=== PATIENT | female | born 1945 | race Caucasian/White ===

== ENCOUNTER → 2016-08-03 | Outpatient (CLI) | payer MEDICARE, BC ==
[~2016-08-03] MED LIST: ACTOPLUS MET 11 EACH PO; ALLEGRA180 MG PO; ATENOLOL PO; B COMPLEX1 CA1 PO; BACTROBAN22 GM TP; BENICAR PO; CALCIUM + D 6001 TA1 PO; CYMBALTA PO; DOXYCYCLINE PO; FLAX SEED OIL1 EACH PO; FLEXERIL10 M1 PO; LIPITOR20 MG PO; LORTAB 101 TAB 10/5 PO; MOBIC15 MG PO; MOVE FREE; PROTONIX PO; STOOL SOFTENER1 EAC1 PO; TRAMADOL HCL50 M2 PO; TYLOX 5-500 CA1 EACH PO; TYLOX1 CAP 5/50 PO
--- NOTE | ~2016-08-03 | MR32 ---
[facility] A Service of [facility] & [facility] RADIOLOGY TEXT RESULTS PATIENT: SINDI RICHARDS LOCATION: [facility] : 49 UNIT #: [id number] AGE: [address]: Mendez Cm MD SEX: F ORDER DR: [id number] [address] [address] [id number] O MR#: [id number] Acc #: [id number] NAME: SINDI RICHARDS : 1945 SEX: F STUDY DATE/TIME: 08/03/2016 9:32 UNIT: [facility] ROOM: STUDY DESCRIPTION: MR Cervical Wo Contrast Attending Physician: Mendez Cm M.D. Referring Physician: Mendez Cm M.D. Ordering Physician: Mendez Cm M.D. Primary Care Physician: Mendez Cm M.D. MRI CENTER REPORT This report is preliminary unless electronic signature is present. EXAM MRI of the cervical spine without contrast dated 08/03/2016. COMPARISON None HISTORY Chronic neck pain for 15 years, favors the right side. FINDINGS Multisequence, multiplanar imaging of the cervical spine was obtained without contrast. Disc-osteophyte complex are at multiple levels with endplate osteophytes. Cord demonstrates expected caliber and signal. It is slightly displaced posteriorly. Imaged posterior fossa and craniovertebral junction are unremarkable. There is mild left mastoid tip mucosal thickening. Pre- and paravertebral soft tissues do not demonstrate any significant abnormality. C2-3: Mild disc bulge with severe left facet hypertrophic change. Mild left neural foraminal encroachment is noted. C3-4: Disc-osteophyte complex with severe left and moderate to severe right facet hypertrophic change. Severe bilateral neural foraminal narrowing is seen with borderline size canal. C4-5: Concentric disc bulge with moderate left facet hypertrophic change. Borderline size canal is noted without any significant neural foraminal narrowing. C5-6: Concentric disc bulge with borderline size to mild canal stenosis. Moderate bilateral facet hypertrophic changes are noted with central protrusion and mild right neural foraminal encroachment. [facility] A Service of [facility] & [facility] RADIOLOGY TEXT RESULTS PATIENT: SINDI RICHARDS LOCATION: [facility] : 49 UNIT #: [id number] AGE: [address]: Mendez Cm MD SEX: F ORDER DR: C6-7: Disc-osteophyte complex with mild bilateral facet changes. Moderate to severe canal stenosis is seen with mild bilateral neural foraminal narrowing. C7-T1: Disc-osteophyte complex with mild to moderate bilateral facet changes. No canal stenosis or significant neural foraminal narrowing. IMPRESSION Degenerative changes are at multiple levels, worst at C6-7 with moderate to severe canal stenosis and mild bilateral neural foraminal narrowing. Cord has normal caliber and signal. Dictated by... Rasta Chaney M.D. THIS IS AN ELECTRONICALLY VERIFIED REPORT Rasta Chaney M.D. at 08/05/2016 12:38 PM CPR/psc TD: 08/03/2016 20:38 JOB #: [id number] MRI CENTER REPORT Page 1 of 1
--- NOTE | ~2016-08-03 | MR113 ---
[facility] A Service of [facility] & [facility] RADIOLOGY TEXT RESULTS PATIENT: SINDI RICHARDS LOCATION: [facility] : 49 UNIT #: [id number] AGE: [address]: Mendez Cm MD SEX: F ORDER DR: [id number] [address] [address] [id number] O MR#: [id number] Acc #: [id number] NAME: SINDI RICHARDS : 1945 SEX: F STUDY DATE/TIME: 08/03/2016 10:05 UNIT: [facility] ROOM: STUDY DESCRIPTION: MR Lumbar Wo Contrast Attending Physician: Mendez Cm M.D. Referring Physician: Mendez Cm M.D. Ordering Physician: Mendez Cm M.D. Primary Care Physician: Mendez Cm M.D. MRI CENTER REPORT This report is preliminary unless electronic signature is present. EXAM MRI of the lumbar spine without contrast, 08/03/[address] abdomen and pelvis with contrast dated 06/12/2012. HISTORY Low back pain for 15 years with bilateral lower extremity weakness. FINDINGS Multisequence multiplanar imaging of the lumbar spine was obtained without contrast. Vertebral body heights and alignment are preserved. Degenerative disc disease is at multiple levels. Fatty endplate changes are noted from L2 to L4. Conus terminates at T12-L1. Signal of conus and cauda equina are within normal limits. T12-L1: Disc osteophyte complex with likely superimposed small central protrusion, mild canal stenosis. No neural foraminal narrowing. Mild right facet hypertrophic change. L1-2: Mild disc bulge, mild bilateral facet changes. Borderline size to mild canal stenosis is seen without significant neural foraminal narrowing. L2-3: Disc osteophyte complex with superimposed gqnulho-di-mnptf subarticular protrusion. Severe bilateral facet hypertrophic changes are noted with ligamentum flavum thickening, severe canal stenosis. Mild right lateral recess stenosis are seen with mild to moderate bilateral neural foraminal narrowing. L3-4: Disc osteophyte complex with Central prominence is seen. There are mild left and moderate right facet hypertrophic changes. Bilateral Ligamentum flavum thickening are noted with severe canal stenosis. Mild left lateral recess stenosis and hehc-ws-rbazqfmj bilateral neural STS. [facility] A Service of [facility] & [facility] RADIOLOGY TEXT RESULTS PATIENT: SINDI RICHARDS LOCATION: [facility] : 49 UNIT #: [id number] AGE: [address]: Mendez Cm MD SEX: F ORDER DR: foraminal narrowing are present. L4-5: Disc osteophyte complex with entc-vz-fxhzwfom bilateral facet hypertrophic changes and jgxw-hm-cbskezbe bilateral neural foraminal narrowing. There is prominence of soft tissue in the anteromedial aspect of the left facet joint which could be related to mild ligamentum flavum thickening or spur. It causes mild to moderate left lateral recess stenosis. Mild transverse canal stenosis is also suspected. L5-S1: There appears to be asymmetrically smaller and tender left lamina, likely congenital. It does not appear to be surgical. Confirm clinically. Severe bilateral facet hypertrophic changes are noted, worse on the right. Disc bulge is noted with mild to moderate left neural foraminal narrowing. No canal stenosis. IMPRESSION Multilevel degenerative changes are noted as described above, worst at L2-3 and L3-4 with canal stenosis and bilateral neural foraminal narrowing as described above. Dictated by... Rasta Chaney M.D. THIS IS AN ELECTRONICALLY VERIFIED REPORT Rasta Chaney M.D. at 08/05/2016 12:41 PM CPR/josh TD: 08/03/2016 21:17 JOB #: [id number] MRI CENTER REPORT Page 1 of 1
== END | disposition home or self-care (01) ==
LOC: SMRI 08:57
DX: M54.5 Low back pain (principal); M54.2 Cervicalgia; M47.812 Spondylosis without myelopathy or radiculopathy, cervical region; M48.02 Spinal stenosis, cervical region; M47.816 Spondylosis without myelopathy or radiculopathy, lumbar region; M48.06 Spinal stenosis, lumbar region
CPT/HCPCS: 72141; 72148